=== PATIENT | female | born 1965 | race Caucasian/White ===

== ENCOUNTER → 2016-10-01 | Outpatient (CLI) | payer OTHER ==
[~2016-10-01] MED LIST: FORTAMET1000 MG PO; LISINOPRIL10 MG PO; METFORMIN500 MG PO; NEURONTIN300 MG PO; NORCO 325 MG-51 TAB PO; PRAVACHOL 40MG40 MG PO; PRILOTC PO; SUPPLEMENT PO; SYSTANE ULTRA 010 ML OP; WOMEN'S DAILY F1 TAB PO; [UNRECOGNIZED DRUG - OTHER] PO; [UNRECOGNIZED DRUG - OTHER] PO
== END ==
LOC: MC.RAD 08:36
DX: Z12.31 Encounter for screening mammogram for malignant neoplasm of breast (principal)

== ENCOUNTER → 2017-01-29 | Outpatient (CLI) | payer OTHER | LOC: COL.LAB 11:40 | DX: E03.9 Hypothyroidism, unspecified (principal) ==

== ENCOUNTER 2017-07-02 15:45 | Outpatient (RCR) | payer SELFPAY | END 2017-09-18 | disposition home or self-care (01) | LOC: MKS.ESL.PT | DX: M54.5 Low back pain (principal); G89.29 Other chronic pain ==

== ENCOUNTER 2017-11-09 23:39 | Emergency (ER) | payer SELFPAY ==
[~2017-11-09] VITALS: Ht 157.5 cm; Wt 86.4 kg
[2017-11-09 23:57] LABS: BASO # 0.1 (0.0-0.2); BASO % 0.6 % (0.0-2.0); EOS # 0.2 (0.0-0.7); EOS % 2.5 % (0-4.0); GRAN % 48.8 % (42.2-75.2); HEMATOCRIT 40.9 % (37.0-47.0); LYMPH # 3.4 (1.2-3.4); LYMPH % 41.2 % (20.0-51.0); MEAN CELL VOLUME 87 fl (80.0-100.0); MEAN CORPUSCULAR HEMOGLOBIN 30 pg (27.0-31.0); MEAN CORPUSCULAR HGB CONC 34 g/dl (33.0-37.0); MEAN PLATELET VOLUME 10.5 fl (7.4-10.4); MONO # 0.6 (0.1-0.6); MONO % 6.7 % (1.7-9.3); PLATELET COUNT 216 K/mm3 (130-400); REDCELL DISTRIBUTION WIDTH-CV 12.4 % (11.5-14.5)
[2017-11-10 00:07] LABS: ALBUMIN 4.5 gm/dL (3.5-5.0); BILIRUBIN,TOTAL 0.3 mg/dL (0.0-1.0); CALCIUM 9.2 mg/dL (8.4-10.2); CREATININE, serum 0.65 mg/dL (0.52-1.25); POTASSIUM 3.9 mmol/L (3.4-5.0); TOTAL PROTEIN 8.9 gm/dL (6.4-8.2)
[2017-11-10] MEDS ORDERED: VITAMIN C500 MG PO (01:16)
[2017-11-10] MEDS ORDERED: SYNTHROID0.137 MG PO (01:17)
[2017-11-10] MEDS ORDERED: VITAMIN E1000 U/CAP PO (01:17)
[2017-11-10] MEDS ORDERED: NATURAL E400 IU PO (01:17)
[2017-11-10 01:18] VITALS: TEMP 98.1
[2017-11-10 01:22] LABS: COLLECTION METHOD CLEAN CATCH
[2017-11-10] MEDS ORDERED: ZITHROMAX Z PA250 MG PO (01:24)
[2017-11-10] MEDS ORDERED: PREDNISONE20 MG PO (01:24)
[2017-11-10 01:27] LABS: MUCOUS Present /lpf; PH 6 (5-8); SQUAMOUS EPITHELIAL None Seen /hpf; URINE APPEARANCE Clear; URINE BACTERIA Rare /hpf; URINE BILIRUBIN Negative (NEGATIVE); URINE BLOOD Negative (NEGATIVE); URINE COLOR Straw; URINE GLUCOSE Negative (NEGATIVE); URINE KETONE Negative (NEGATIVE); URINE LEUKOCYTE ESTERASE 3+ (NEGATIVE); URINE NITRATE Negative (NEGATIVE); URINE PROTEIN(semi-quant) Negative (NEGATIVE); URINE UROBILINOGEN Negative (NEGATIVE)
[2017-11-10 01:52] VITALS: BP 120/89; PULSE 97
== END 2017-11-10 02:05 | disposition home or self-care (01) ==
LOC: COL.ER 23:39
PROVIDERS: Family Medicine
DX: J02.9 Acute pharyngitis, unspecified (principal); E11.9 Type 2 diabetes mellitus without complications; K21.9 Gastro-esophageal reflux disease without esophagitis
CPT/HCPCS: J0696; J1100; J7030; Q9967

== ENCOUNTER 2018-02-17 13:01 | Emergency (ER) | payer OTHER ==
[~2018-02-17] VITALS: Ht 157.5 cm; Wt 86.4 kg
[~2018-02-17 13:01] MED LIST changes: +NATURAL E400 IU PO; +PREDNISONE20 MG PO; +SYNTHROID0.137 MG PO; +VITAMIN C500 MG PO; +VITAMIN E1000 U/CAP PO; +ZITHROMAX Z PA250 MG PO
[2018-02-17 13:02] VITALS: TEMP 98.1
[2018-02-17 13:23] LABS: BASO # 0.1 (0.0-0.2); BASO % 0.8 % (0.0-2.0); EOS # 0.2 (0.0-0.7); EOS % 2.5 % (0-4.0); GRAN # 2.7 (1.4-6.5); GRAN % 31.4 % (42.2-75.2); HEMATOCRIT 40.2 % (37.0-47.0); HEMOGLOBIN 13.5 g/dl (12.5-16.0); LYMPH # 4.9 (1.2-3.4); LYMPH % 56.7 % (20.0-51.0); MEAN CELL VOLUME 87 fl (80.0-100.0); MEAN CORPUSCULAR HEMOGLOBIN 29 pg (27.0-31.0); MEAN CORPUSCULAR HGB CONC 34 g/dl (33.0-37.0); MEAN PLATELET VOLUME 10.3 fl (7.4-10.4); MONO # 0.7 (0.1-0.6); MONO % 8.2 % (1.7-9.3); PLATELET COUNT 224 K/mm3 (130-400); RED BLOOD COUNT 4.64 M/mm3 (4.10-5.30); REDCELL DISTRIBUTION WIDTH-CV 12.8 % (11.5-14.5)
[2018-02-17 13:35] LABS: ALANINE AMINOTRANSFERASE 33 U/L (9-52); ALBUMIN 4.2 gm/dL (3.5-5.0); ALKALINE PHOSPHATASE 87 U/L (50-136); ANION GAP 12 mmol/L (7-16); AST,SGOT 26 U/L (15-37); BILIRUBIN,TOTAL 0.1 mg/dL (0.0-1.0); BLOOD UREA NITROGEN 13 mg/dL (7-17); C-REACTIVE PROTEIN 0.9 mg/dL (0.0-0.9); CALCIUM 8.7 mg/dL (8.4-10.2); CARBON DIOXIDE 25 mmol/L (22-30); CHLORIDE 102 mmol/L (98-107); CREATININE, serum 0.59 mg/dL (0.52-1.25); GLUCOSE 152 mg/dL (74-106); SODIUM 138 mmol/L (137-145); TOTAL PROTEIN 7.5 gm/dL (6.4-8.2)
[2018-02-17 13:47] LABS: TROPONIN-I < 0.012 ng/mL (0.000-0.034)
[2018-02-17] MEDS ORDERED: PREDNISONE20 MG PO (14:40)
[2018-02-17] MEDS ORDERED: CLEOCIN HC150 MG/CAP PO (14:40)
[2018-02-17] MEDS ORDERED: PROTONIX 40MG T40 MG PO (14:45)
[2018-02-17 15:23] VITALS: BP 133/87; PULSE 98
== END 2018-02-17 15:26 | disposition home or self-care (01) ==
LOC: COL.ER 13:01
PROVIDERS: Emergency Medicine
DX: J02.9 Acute pharyngitis, unspecified (principal); R06.02 Shortness of breath; E03.9 Hypothyroidism, unspecified
CPT/HCPCS: J1200; J7030

== ENCOUNTER 2018-03-08 01:18 | Emergency (ER) | payer OTHER ==
[~2018-03-08] VITALS: Ht 157.5 cm; Wt 89.5 kg
[~2018-03-08 01:18] MED LIST changes: +CLEOCIN HC150 MG/CAP PO; +PROTONIX 40MG T40 MG PO
[2018-03-08 01:22] VITALS: BP 126/70; TEMP 98.1
[2018-03-08] MEDS ORDERED: VENTOLIN0.09 MG IH (01:30)
[2018-03-08] MEDS ORDERED: PREDNISONE20 MG PO (02:31)
[2018-03-08 02:48] VITALS: PULSE 81
== END 2018-03-08 02:45 | disposition home or self-care (01) ==
LOC: COL.ER 01:18
DX: R09.89 Other specified symptoms and signs involving the circulatory and respiratory systems (principal); E11.9 Type 2 diabetes mellitus without complications; K21.9 Gastro-esophageal reflux disease without esophagitis; Z90.89 Acquired absence of other organs
CPT/HCPCS: J1200; J2930

== ENCOUNTER 2018-08-12 12:32 | Emergency (ER) | payer SELFPAY ==
[~2018-08-12] VITALS: Ht 157.5 cm; Wt 87.7 kg
[~2018-08-12 12:32] MED LIST changes: +VENTOLIN0.09 MG IH
[2018-08-12 12:40] VITALS: BP 128/74; TEMP 97.6
[2018-08-12] MEDS ORDERED: SYNTHROID0.1 MG/TAB PO (12:51)
[2018-08-12] MEDS ORDERED: DEXILANT60 MG PO (12:51)
[2018-08-12] MEDS ORDERED: CLEOCIN HC150 MG/CAP PO (12:52)
[2018-08-12] MEDS ORDERED: ADVIL200 MG PO (13:08)
[2018-08-12] MEDS ORDERED: LIDODERM 5% PATC1 EA TP (13:25)
[2018-08-12] MEDS ORDERED: FLEXERIL 1010 MG/TAB PO (13:25)
[2018-08-12 14:15] VITALS: PULSE 68
== END 2018-08-12 14:15 | disposition home or self-care (01) ==
LOC: COL.ER 12:32
DX: M54.42 Lumbago with sciatica, left side (principal); E11.9 Type 2 diabetes mellitus without complications; E03.9 Hypothyroidism, unspecified; Z88.8 Allergy status to other drugs, medicaments and biological substances
CPT/HCPCS: J1885

== ENCOUNTER 2018-10-31 20:32 | Emergency (ER) | payer OTHER ==
[~2018-10-31] VITALS: Ht 157.5 cm; Wt 86.4 kg
[~2018-10-31 20:32] MED LIST changes: +ADVIL200 MG PO; +DEXILANT60 MG PO; +FLEXERIL 1010 MG/TAB PO; +LIDODERM 5% PATC1 EA TP; +SYNTHROID0.1 MG/TAB PO
[2018-10-31 20:38] VITALS: BP 142/83; TEMP 97.8
[2018-10-31] MEDS ORDERED: FLEXERIL 1010 MG/TAB PO (23:07)
[2018-10-31] MEDS ORDERED: NORCO 325 MG-51 TAB PO (23:07)
[2018-10-31 23:20] VITALS: PULSE 65
== END 2018-10-31 23:20 | disposition home or self-care (01) ==
LOC: COL.ER 20:32
DX: S13.4XXA Sprain of ligaments of cervical spine, initial encounter (principal); E11.9 Type 2 diabetes mellitus without complications; E03.9 Hypothyroidism, unspecified; V43.52XA Car driver injured in collision with other type car in traffic accident, initial encounter; Z79.4 Long term (current) use of insulin

== ENCOUNTER → 2019-06-10 | Outpatient (CLI) | payer OTHER | LOC: MC.RAD 15:48 | DX: Z12.31 Encounter for screening mammogram for malignant neoplasm of breast (principal) ==

== ENCOUNTER → 2019-08-30 | Outpatient (CLI) | payer OTHER | LOC: COL.RAD 16:11 | DX: M54.5 Low back pain (principal); V89.2XXS Person injured in unspecified motor-vehicle accident, traffic, sequela ==

== ENCOUNTER 2019-09-22 12:26 | Emergency (ER) | payer SELFPAY ==
[~2019-09-22] VITALS: Ht 157.5 cm; Wt 86.4 kg
[2019-09-22] MEDS ORDERED: TAMIFLU 75MG75 MG PO (14:27)
[2019-09-22 14:37] VITALS: BP 123/84; PULSE 107; TEMP 99.8
== END 2019-09-22 14:40 | disposition home or self-care (01) ==
LOC: COL.ER 12:26
DX: J10.1 Influenza due to other identified influenza virus with other respiratory manifestations (principal); E11.9 Type 2 diabetes mellitus without complications

== ENCOUNTER 2019-10-21 08:00 | Outpatient (RCR) | payer SELFPAY ==
[~2019-10-21 08:00] MED LIST changes: +TAMIFLU 75MG75 MG PO
== END 2019-12-27 | disposition home or self-care (01) ==
LOC: WSC
DX: S39.012S Strain of muscle, fascia and tendon of lower back, sequela (principal); V89.2XXS Person injured in unspecified motor-vehicle accident, traffic, sequela

== ENCOUNTER → 2020-10-13 | Outpatient (CLI) | payer OTHER | LOC: COL.RAD 13:02 | DX: M25.552 Pain in left hip (principal) ==

== ENCOUNTER → 2020-12-21 | Outpatient (CLI) | payer OTHER | LOC: COL.RAD 12-14 08:15 | DX: M48.061 Spinal stenosis, lumbar region without neurogenic claudication (principal) ==

== ENCOUNTER → 2023-07-01 | Outpatient (CLI) | payer OTHER | LOC: CANSCHCLI → MC.RAD 10:03 | DX: Z12.31 Encounter for screening mammogram for malignant neoplasm of breast (principal) ==